=== PATIENT | male | born 1970 | race Caucasian/White ===

== ENCOUNTER 2017-10-13 19:12 | Emergency (ER) | payer BC, OTHER ==
[~2017-10-13] VITALS: Ht 185.4 cm; Wt 97.7 kg
[2017-10-13] MEDS ORDERED: D-AMPHETAMINE (19:27)
[2017-10-13] MEDS ORDERED: OMEP40CA2 (19:27)
[2017-10-13] MEDS ORDERED: IBUP-1022 PO (19:27)
[2017-10-13] MEDS ORDERED: ASPIRIN 81 MG CHEW TABLET PO ONE (21:15)
[2017-10-13 21:19] LABS: BASO # 0.1 10^3/uL (0.0-0.2); BASO % 0.6 % (0.0-1.0); EOS # 0.2 10^3/uL (0.0-0.50); EOS % 2.5 % (0.0-3.0); IMMATURE GRANULOCYTE % 0.2 % (0-0); LYMPH # 2.6 10^3/uL (1.5-4.5); LYMPH % 29.4 % (24.0-44.0); MEAN CORPUSCULAR HEMOGLOBIN 30.6 pg (27.0-33.0); MEAN CORPUSCULAR HGB CONC 33.3 g/dl (32.0-36.5); MEAN CORPUSCULAR VOLUME 91.9 fl (80.0-96.0); MONO % 11.5 % (0.0-5.0); NEUTROPHILS % 55.8 % (36.0-66.0); PLATELET COUNT, AUTOMATED 264 10^3/uL (150-450); RED CELL DISTRIBUTION WIDTH 12.5 % (11.5-14.5); WHITE BLOOD COUNT 8.9 10^3/uL (4.0-10.0)
[2017-10-13 21:34] LABS: ALBUMIN 3.3 GM/DL (3.2-5.2); ALBUMIN/GLOBULIN RATIO 0.97 (1.00-1.93); ALKALINE PHOSPHATASE 89 U/L (45-117); ALT/SGPT 27 U/L (12-78); ANION GAP 4 MEQ/L (8-16); AST/SGOT 14 U/L (7-37); BILIRUBIN,DIRECT < 0.1 MG/DL (0.0-0.2); BILIRUBIN,TOTAL 0.3 MG/DL (0.2-1.0); BLOOD UREA NITROGEN 14 MG/DL (7-18); CALCIUM LEVEL 8.5 MG/DL (8.5-10.1); CARBON DIOXIDE LEVEL 29 MEQ/L (21-32); CHLORIDE LEVEL 108 MEQ/L (98-107); CREATININE FOR GFR 0.89 MG/DL (0.70-1.30); GLOMERULAR FILTRATION RATE > 60.0 (>60); GLUCOSE, FASTING 70 MG/DL (70-105); POTASSIUM SERUM 3.9 MEQ/L (3.5-5.1); SODIUM LEVEL 141 MEQ/L (136-145); TOTAL PROTEIN 6.7 GM/DL (6.4-8.2)
[2017-10-13 22:16] LABS: FREE T4 1.03 NG/DL (0.76-1.46)
[2017-10-14] MEDS ORDERED: ISOVUE-370 76% 100ML VIAL (Q9967) As Ordered ONE (00:27)
--- NOTE | 2017-10-14 02:20 | REPUSA ---
CLINICAL HISTORY: Dyspnea, exclude PE. TECHNIQUE: Multiple incremental axial, coronal and oblique images are obtained from the thoracic inle t to the upper abdomen. Intravenous contrast material was administered as per pulmonary embolism prot ocol. COMMENTS: Bilateral basilar dependent atelectatic airspace disease in the lower lobes. There is excellent opacification of pulmonary arterial system without evidence for pulmonary embolism . Aorta is of normal caliber without evidence for dissection or aneurysm. There is no evidence of pleural or parenchymal mass. There are no pleural effusions. There is no evid ence of hilar or mediastinal lymphadenopathy. The heart and great vessels are within normal limits. Images of the upper abdomen demonstrate no evidence of adrenal mass. The bony structures are free of lytic or blastic lesions. IMPRESSION: No evidence for pulmonary embolism. Bilateral basilar atelectatic airspace disease in the dependent aspect of the lungs. Thank you for your kind referral of this patient.
[2017-10-14 02:29] VITALS: BP 116/64
--- NOTE | 2017-10-14 02:49 | REP ---
Clinical: Chest pain . Comparison: 11/15/2014 . Findings: The mediastinum and cardiac silhouette are stable and within normal limits for portable technique. The lung verduzco are clear without acute consolidation, effusion, or pneumothorax. Skeletal structures are intact. Impression: No acute cardiopulmonary process appreciated. Signed by Mike Ramos MD 10/14/2017 02:40 A
--- NOTE | 2017-10-14 09:21 | ECGEPIP ---
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
--- NOTE | 2017-10-14 09:39 | ECGEPIP ---
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
== END 2017-10-14 02:46 | disposition home or self-care (01) ==
LOC: M ED 19:12
DX: R07.89 Other chest pain (principal); K21.9 Gastro-esophageal reflux disease without esophagitis; Z79.899 Other long term (current) drug therapy
CPT/HCPCS: 36415; 71010; 71275; 80048; 80076; 82550; 82553; 83690; 84439; 84443; 85025; 93005; 93041; 94760; 99285; Q9967

== ENCOUNTER → 2018-01-09 | Outpatient (REF) | payer BC, OTHER ==
[2018-01-09 19:01] LABS: FERRITIN 155 NG/ML (26-388); IRON (FE) 84 UG/DL (65-175); PERCENT SATURATION 30.5 % (19.7-50.0); TOTAL IRON BINDING CAPACITY 275 UG/DL (250-450)
== END ==
LOC: M LAB REF 18:01
DX: Z01.818 Encounter for other preprocedural examination (principal); M25.559 Pain in unspecified hip; D63.8 Anemia in other chronic diseases classified elsewhere
CPT/HCPCS: 83550

== ENCOUNTER → 2020-08-15 | Outpatient (REF) | payer OTHER ==
[~2020-08-15] MED LIST: D-AMPHETAMINE; IBUP-1022 PO; OMEP40CA97
== END ==
LOC: M LAB REF 11:59
PROVIDERS: ATTEND Physician Assistant Medical
DX: R19.4 Change in bowel habit (principal)

== ENCOUNTER → 2020-09-03 | Outpatient (CLI) | payer BC, OTHER ==
[~2020-09-03] MED LIST changes: +GASTROGRAFIN SOLUTION 30ML (Q9963) As Ordered ONE; +ISOVUE-370 76% 100ML VIAL As Ordered ONE
--- NOTE | 2020-09-03 10:31 | REP ---
INDICATION: CHANGE IN BOWEL HABITS, UPPER ABD PAIN, FAMILY HX. COMPARISON: None TECHNIQUE: Axial contrast-enhanced images from the lung bases to the pubic symphysis using 100 cc Isovue 370 intravenous contrast material. Precontrast images of the abdomen obtained along with coronal and sagittal reformations. Post processing metallic artifact reduction images obtained through the pelvis. This CT examination was performed using the following dose reduction techniques: Automated exposure control, adjustment of mA and/or kv according to the patient's size, and the use of iterative reconstruction technique. FINDINGS: Liver, spleen, pancreas, gallbladder, bilateral adrenal glands and kidneys are essentially normal. Incidental 1 mm nonobstructing left renal calculus noted. The enteric system including stomach, small, and large bowel appears relatively normal. No evidence for obstruction or acute inflammatory process. Normal terminal ileum and appendix are identified in the right lower quadrant. Colonic and sigmoid diverticulosis noted without acute diverticulitis. Pelvis demonstrates normal bladder and age-appropriate prostate/seminal vesicles. No ascites. No free air. No intraperitoneal or retroperitoneal adenopathy. Abdominal aorta and vasculature appear normal. Musculoskeletal structures are intact and without acute osseous abnormality. Lung bases are clear. IMPRESSION: 1. Diverticulosis without acute diverticulitis. 2. 1 mm nonobstructing left renal calculus. 3. No further acute abdominopelvic pathology appreciated. No ascites, focal inflammatory stranding, or adenopathy noted. <Electronically signed by Mike Ramos > 09/03/20 [id number]
== END ==
LOC: M RAD 08:26
PROVIDERS: ATTEND Physician Assistant Medical
DX: N20.0 Calculus of kidney (principal); R19.4 Change in bowel habit; R10.10 Upper abdominal pain, unspecified; Z80.0 Family history of malignant neoplasm of digestive organs
CPT/HCPCS: 74178; Q9963; Q9967

== ENCOUNTER → 2020-09-28 | Outpatient (CLI) | payer OTHER ==
[~2020-09-28] MED LIST changes: +CETI5SOL3 PO; -GASTROGRAFIN SOLUTION 30ML (Q9963) As Ordered ONE; -ISOVUE-370 76% 100ML VIAL As Ordered ONE; +LAMO25TA4 PO; +OMEP-221 PO
== END ==
LOC: M LABSMTC 08:14
PROVIDERS: ATTEND Anesthesiology
DX: Z01.812 Encounter for preprocedural laboratory examination (principal); Z20.828 Contact with and (suspected) exposure to other viral communicable diseases

== ENCOUNTER 2020-10-03 08:55 | Day surgery (SDC) | payer BC, OTHER ==
[~2020-10-03] VITALS: Ht 185.4 cm; Wt 105.2 kg
[~2020-10-03 08:55] MED LIST changes: +NS 1,000 ML IV ONE
[2020-10-03] MEDS ORDERED: CIPROFLOXACIN 400 MG in IV 1 EA IV ONE (11:00)
[2020-10-03] MEDS ORDERED: propofoL 500 MG/50 ML VIAL As Ordered ONE (11:20)
[2020-10-03] MEDS ORDERED: LIDOCAINE 2% 100MG/5ML SDV (FOR ANES.) As Ordered ONE (11:20)
[2020-10-03] MEDS ORDERED: fentaNYL 100 MCG/2 ML INJECTION (J3010) As Ordered ONE (11:20)
[2020-10-03] MEDS ORDERED: GLYCOPYRROLATE INJ 0.2 MG/ML 2 ML VIAL As Ordered ONE (11:46)
--- NOTE | 2020-10-03 12:06 | ROOR ---
Patient Name: Dequan Catherine Procedure Date: 10/03/2020 11:03 AM Date of : 1970 Age: 49 Room: [facility] Gender: Male Note Status: Finalized Procedure: Upper GI endoscopy Indications: Epigastric abdominal pain, Heartburn Providers: Rafa Fernandez MD Referring MD: PARTHA WAY JR, MD Requesting Provider: Medicines: Monitored Anesthesia Care Complications: No immediate complications. Procedure: Pre-Anesthesia Assessment: - Prior to the procedure, a History and Physical was performed, and patient medications and allergies were reviewed. The patient is competent. The risks and benefits of the procedure and the sedation options and risks were discussed with the patient. All questions were answered and informed consent was obtained. Patient identification and proposed procedure were verified by the physician, the nurse and the anesthesiologist in the procedure room. Mental Status Examination: alert and oriented. Airway Examination: normal oropharyngeal airway and neck mobility. Respiratory Examination: clear to auscultation. CV Examination: normal. Prophylactic Antibiotics: The patient does not require prophylactic antibiotics. Prior Anticoagulants: The patient has taken no previous anticoagulant or antiplatelet agents. ASA Grade Assessment: III - A patient with severe systemic disease. After reviewing the risks and benefits, the patient was deemed in satisfactory condition to undergo the procedure. The anesthesia plan was to use monitored anesthesia care (MAC). Immediately prior to administration of medications, the patient was re-assessed for adequacy to receive sedatives. The heart rate, respiratory rate, oxygen saturations, blood pressure, adequacy of pulmonary ventilation, and response to care were monitored throughout the procedure. The physical status of the patient was re-assessed after the procedure. The Endoscope was introduced through the mouth, and advanced to the second part of duodenum. The upper GI endoscopy was accomplished without difficulty. The patient tolerated the procedure poorly due to the patient's excessive discomfort during the procedure and the patient's inability to tolerate anesthesia. Findings: No gross lesions were noted in the entire esophagus. Scattered mild inflammation characterized by erythema and granularity was found in the gastric antrum. No gross lesions were noted in the duodenal bulb and in the second portion of the duodenum. Exam was limited by poor tolerance by patient. Impression: - No gross lesions in esophagus. - Gastritis. - No gross lesions in the duodenal bulb and in the second portion of the duodenum. - No specimens collected. Recommendation: - Patient has a contact number available for emergencies. The signs and symptoms of potential delayed complications were discussed with the patient. Return to normal activities tomorrow. Written discharge instructions were provided to the patient. - High fiber diet. - Continue present medications. - Follow an antireflux regimen. - Repeat upper endoscopy (if needed, as current exam is limited due to poor tolerance) and depending on clinical course/ symptoms for detailed evaluation and biopsies. - Follow the recommendations as per the other procedure note. - Return to primary care physician. Procedure Code(s): --- Professional --- 78782, Esophagogastroduodenoscopy, flexible, transoral; diagnostic, including collection of specimen(s) by brushing or washing, when performed (separate procedure) Diagnosis Code(s): --- Professional --- K29.70, Gastritis, unspecified, without bleeding R10.13, Epigastric pain R12, Heartburn CPT copyright 2019 [employer]. All rights reserved. The codes documented in this report are preliminary and upon economic manager review may be revised to meet current compliance requirements. Rafa Fernandez MD Rafa Fernandez MD 10/03/2020 12:05:41 PM Electronically signed by Rafa Fernandez MD Number of Addenda: 0 Note Initiated On: 10/03/2020 11:03 AM Estimated Blood Loss: Estimated blood loss was minimal.
--- NOTE | 2020-10-03 12:12 | ROOR ---
Patient Name: Dequan Catherine Procedure Date: 10/03/2020 11:04 AM Date of : 1970 Age: 49 Room: [facility] Gender: Male Note Status: Finalized Procedure: Colonoscopy Indications: Screening for colorectal malignant neoplasm Providers: Rafa Fernandez MD Referring MD: PARTHA WAY JR, MD Requesting Provider: Medicines: Monitored Anesthesia Care Complications: No immediate complications. Procedure: Pre-Anesthesia Assessment: - Prior to the procedure, a History and Physical was performed, and patient medications and allergies were reviewed. The patient is competent. The risks and benefits of the procedure and the sedation options and risks were discussed with the patient. All questions were answered and informed consent was obtained. Patient identification and proposed procedure were verified by the physician, the nurse and the anesthesiologist in the procedure room. Mental Status Examination: normal. Airway Examination: normal oropharyngeal airway and neck mobility. Prophylactic Antibiotics: The patient does not require prophylactic antibiotics. Prior Anticoagulants: The patient has taken no previous anticoagulant or antiplatelet agents. ASA Grade Assessment: II - A patient with mild systemic disease. After reviewing the risks and benefits, the patient was deemed in satisfactory condition to undergo the procedure. The anesthesia plan was to use monitored anesthesia care (MAC). Immediately prior to administration of medications, the patient was re-assessed for adequacy to receive sedatives. The heart rate, respiratory rate, oxygen saturations, blood pressure, adequacy of pulmonary ventilation, and response to care were monitored throughout the procedure. The physical status of the patient was re-assessed after the procedure. The Colonoscope was introduced through the anus and advanced to the terminal ileum, with identification of the appendiceal orifice and IC valve. The colonoscopy was performed without difficulty. The patient tolerated the procedure well. The quality of the bowel preparation was good. The terminal ileum, ileocecal valve, appendiceal orifice, and rectum were photographed. Scope insertion time was 2 minutes. Scope withdrawal time was 10 minutes. The total duration of the procedure was 14 minutes. Findings: The perianal and digital rectal examinations were normal. The terminal ileum appeared normal. Four sessile polyps were found in the transverse colon, ascending colon and cecum. The polyps were 8 to 12 mm in size. These polyps were removed with a cold snare. Resection and retrieval were complete. Verification of patient identification for the specimen was done by the physician and nurse using the patient's name, date and medical record number. Estimated blood loss was minimal. Non-bleeding external and internal hemorrhoids were found during retroflexion. The hemorrhoids were small. Impression: - The examined portion of the ileum was normal. - Four 8 to 12 mm polyps in the transverse colon, in the ascending colon and in the cecum, removed with a cold snare. Resected and retrieved. - Non-bleeding external and internal hemorrhoids. Recommendation: - Patient has a contact number available for emergencies. The signs and symptoms of potential delayed complications were discussed with the patient. Return to normal activities tomorrow. Written discharge instructions were provided to the patient. - High fiber diet. - Continue present medications. - Await pathology results. - Repeat colonoscopy in 3 - 5 years for surveillance based on pathology results. - Telephone GI clinic for pathology results in 2 weeks. - Return to primary care physician. Procedure Code(s): --- Professional --- 87115, Colonoscopy, flexible; with removal of tumor(s), polyp(s), or other lesion(s) by snare technique Diagnosis Code(s): --- Professional --- Z12.11, Encounter for screening for malignant neoplasm of colon K64.8, Other hemorrhoids K63.5, Polyp of colon CPT copyright 2019 [place] [employer]. All rights reserved. The codes documented in this report are preliminary and upon [employer] review may be revised to meet current compliance requirements. Rafa Fernandez MD Rafa Fernandez MD 10/03/2020 12:11:17 PM Electronically signed by Rafa Fernandez MD Number of Addenda: 0 Note Initiated On: 10/03/2020 11:04 AM Estimated Blood Loss: Estimated blood loss was minimal.
[2020-10-03 12:30] VITALS: BP 137/95
== END 2020-10-03 12:39 | disposition home or self-care (01) ==
LOC: M OPP 08:55
PROVIDERS: ATTEND Internal Medicine Gastroenterology
DX: R19.4 Change in bowel habit (principal); R10.13 Epigastric pain; Z80.0 Family history of malignant neoplasm of digestive organs; D12.6 Benign neoplasm of colon, unspecified; K64.8 Other hemorrhoids; K29.70 Gastritis, unspecified, without bleeding; F41.9 Anxiety disorder, unspecified; G47.30 Sleep apnea, unspecified; F17.220 Nicotine dependence, chewing tobacco, uncomplicated; Z91.013 Allergy to seafood; Z79.899 Other long term (current) drug therapy; Z96.641 Presence of right artificial hip joint
CPT/HCPCS: 43235; 45385; 88305; J0744; J3010

== ENCOUNTER → 2020-10-06 | Outpatient (CLI) | payer BC, OTHER ==
[~2020-10-06] MED LIST changes: -NS 1,000 ML IV ONE
--- NOTE | 2020-10-06 11:42 | REP ---
INDICATION: COUGH COMPARISON: 11/15/2014 TECHNIQUE: PA and lateral. FINDINGS: The mediastinum and cardiac silhouette are normal. The lung verduzco are clear and without acute consolidation, effusion, or pneumothorax. The skeletal structures are intact and normal. IMPRESSION: No acute cardiopulmonary process. <Electronically signed by Mike Ramos > 10/06/20 [id number]
== END ==
LOC: M RAD 10:51
PROVIDERS: ATTEND Nurse Practitioner Acute Care
DX: R05 Cough (principal)

== ENCOUNTER → 2020-10-31 | Outpatient (REF) | payer OTHER, BC | LOC: M LAB REF 10:01 | PROVIDERS: ATTEND Physician Assistant Medical | DX: R19.4 Change in bowel habit (principal) ==

== ENCOUNTER 2021-03-24 17:35 | Emergency (ER) | payer BC, OTHER ==
[~2021-03-24] VITALS: Ht 185.4 cm; Wt 97.7 kg
[2021-03-24 17:35] VITALS: BP 105/57
--- NOTE | 2021-03-24 18:49 | REP ---
INDICATION: finger lac. COMPARISON: None. TECHNIQUE: Four views of the 2nd digit FINDINGS: No acute fracture or destructive osseous lesion. IMPRESSION: No osseous abnormality <Electronically signed by James Moctezuma > 03/24/21 [id number]
[2021-03-24] MEDS ORDERED: LIDOCAINE 2% MDV 20ML VIAL INFIL ONE (21:10)
[2021-03-24] MEDS ORDERED: BOOSTRIX/ADACEL VACCINE (DIPHTH/PERTUSS/ACELL/TETANUS) 0.5ML SYR IM ONE (21:10)
[2021-03-24] MEDS ORDERED: NEOSPORIN OINT 0.9 GM PKT TOP ONE (22:30)
== END 2021-03-24 22:51 | disposition home or self-care (01) ==
LOC: M ED 17:35
DX: S61.210A Laceration without foreign body of right index finger without damage to nail, initial encounter (principal); S60.412A Abrasion of right middle finger, initial encounter; W26.8XXA Contact with other sharp object(s), not elsewhere classified, initial encounter; Y92.009 Unspecified place in unspecified non-institutional (private) residence as the place of occurrence of the external cause; Y93.9 Activity, unspecified; Y99.9 Unspecified external cause status; F41.9 Anxiety disorder, unspecified; F17.200 Nicotine dependence, unspecified, uncomplicated; Z79.899 Other long term (current) drug therapy; Z91.013 Allergy to seafood

== ENCOUNTER → 2021-06-09 | Outpatient (REF) | payer BC, OTHER ==
[~2021-06-09] MED LIST changes: +OMEP40CA4; -OMEP40CA97
[2021-06-09 19:12] LABS: GC DNA AMPLIFICATION NEGATIVE (NEGATIVE)
[2021-06-09 21:26] LABS: APPEARANCE, URINE CLEAR (CLEAR); BACTERIA, URINE AUTO NEGATIVE (NEGATIVE); BILIRUBIN, URINE AUTO NEGATIVE (NEGATIVE); BLOOD, URINE BLOOD NEGATIVE (NEGATIVE); COLOR, URINE STRAW (YELLOW); GLUCOSE, URINE (UA) AUTO NEGATIVE (NEGATIVE); KETONE, URINE AUTO NEGATIVE (NEGATIVE); LEUKOCYTE ESTERASE, URINE AUTO NEGATIVE (NEGATIVE); MUCUS, URINE SMALL (NEGATIVE); NITRITE, URINE AUTO NEGATIVE (NEGATIVE); PROTEIN, URINE AUTO NEGATIVE (NEGATIVE); RBC, URINE AUTO 0 /HPF (0-3); SPECIFIC GRAVITY URINE AUTO 1.005 (1.002-1.035); SQUAMOUS EPITHELIAL CELL UR AU 0 /HPF (0-6); UROBILINOGEN, URINE AUTO 0.2 mg/dL (0.0-2.0); WBC, URINE AUTO 0 /HPF (0-3)
== END ==
LOC: M SMT 16:49
PROVIDERS: ATTEND Nurse Practitioner Family
DX: R30.0 Dysuria (principal)

== ENCOUNTER → 2021-12-25 | Outpatient (CLI) | payer BC, OTHER ==
[~2021-12-25] MED LIST changes: -OMEP-221 PO; +OMEP40CA5 PO
== END ==
LOC: M WUC 14:30
PROVIDERS: ATTEND Internal Medicine
DX: R07.9 Chest pain, unspecified (principal)

== ENCOUNTER → 2022-01-15 | Outpatient (CLI) | payer BC, OTHER | LOC: M RAD 13:09 | PROVIDERS: ATTEND Internal Medicine | DX: Z12.2 Encounter for screening for malignant neoplasm of respiratory organs (principal); Z87.891 Personal history of nicotine dependence; R91.8 Other nonspecific abnormal finding of lung field ==

== ENCOUNTER 2022-05-13 02:46 | Emergency (ER) | payer BC, OTHER ==
[~2022-05-13] VITALS: Ht 185.4 cm; Wt 102.3 kg
[2022-05-13] MEDS ORDERED: ATROPINE SULF 1MG/10ML SYRINGE (J0461) ONE (02:47)
[2022-05-13] MEDS ORDERED: IBUP200C89 PO (02:59)
[2022-05-13] MEDS ORDERED: PRED10PA PO (02:59)
[2022-05-13] MEDS ORDERED: ACET-683 PO (02:59)
[2022-05-13] MEDS ORDERED: NITROGLYCERIN 0.4 MG SUBL TABLET SL PRN (03:35)
[2022-05-13] MEDS ORDERED: ASPIRIN 81 MG CHEW TABLET PO ONE (03:35)
[2022-05-13 03:40] VITALS: BP 132/74
[2022-05-13 03:41] LABS: BASO # 0.1 10^3/uL (0.0-0.2); BASO % 0.6 % (0.0-1.0); EOS # 0.2 10^3/uL (0.0-0.5); EOS % 1.3 % (0.0-3.0); HEMATOCRIT 45.8 % (42.0-52.0); HEMOGLOBIN 15.3 g/dl (13.5-17.5); LYMPH # 2.1 10^3/uL (1.5-5.0); LYMPH % 15.7 % (24.0-44.0); MEAN CORPUSCULAR HEMOGLOBIN 31.2 pg (27.0-33.0); MEAN CORPUSCULAR HGB CONC 33.4 g/dl (32.0-36.5); MEAN CORPUSCULAR VOLUME 93.3 fl (80.0-96.0); MONO # 1.1 10^3/uL (0.0-0.8); NEUTROPHILS # 9.9 10^3/uL (1.5-8.5); PLATELET COUNT, AUTOMATED 277 10^3/uL (150-450); RED BLOOD COUNT 4.91 10^6/uL (4.30-6.10); WHITE BLOOD COUNT 13.4 10^3/uL (4.0-10.0)
[2022-05-13 04:00] LABS: BLOOD UREA NITROGEN 22 MG/DL (7-18); CALCIUM LEVEL 8.9 MG/DL (8.5-10.1); CARBON DIOXIDE LEVEL 27 MEQ/L (21-32); CHLORIDE LEVEL 107 MEQ/L (98-107); CREATININE FOR GFR 1.09 MG/DL (0.70-1.30); GLOMERULAR FILTRATION RATE > 60.0 (>56); GLUCOSE, FASTING 110 MG/DL (70-100); MAGNESIUM LEVEL 2.2 MG/DL (1.8-2.4); POTASSIUM SERUM 3.8 MEQ/L (3.5-5.1); SODIUM LEVEL 142 MEQ/L (136-145)
[2022-05-13 04:06] LABS: CK-MB VALUE MASS 1.8 NG/ML (<3.6); MB/CK RELATIVE INDEX 0.87 (< OR =4)
[2022-05-13 04:27] LABS: RSV AMPLIFICATION NEGATIVE (NEGATIVE)
[2022-05-13 05:03] LABS: CK-MB VALUE MASS 2.7 NG/ML (<3.6); MB/CK RELATIVE INDEX 2.43 (< OR =4)
[2022-05-13] MEDS ORDERED: HEPARIN DRIP 25,000 UNITS in IV 1 EA IV SCH (05:30)
[2022-05-13] MEDS ORDERED: CLOPIDOGREL 300 MG TAB (PLAVIX) PO ONE (05:30)
[2022-05-13] MEDS ORDERED: TENECTEPLASE 50 MG KIT (TNKase) (J3101 PER 1MG) IV ONE (06:00)
[2022-05-13 06:18] LABS: CK-MB VALUE MASS 5.2 NG/ML (<3.6); MB/CK RELATIVE INDEX 4.64 (< OR =4)
[2022-05-13] MEDS ORDERED: DOPamine 400 MG/500 ML BAG IN D5W (800MCG/ML) (J1265) As Ordered ONE (06:52)
[2022-05-13 07:15] VITALS: BP 122/63
== END 2022-05-13 07:16 | disposition short-term general hospital (02) ==
LOC: M ED 02:46 → EDBD 02:46 → M ED 07:16
DX: I21.19 ST elevation (STEMI) myocardial infarction involving other coronary artery of inferior wall (principal); K21.9 Gastro-esophageal reflux disease without esophagitis; F32.A Depression, unspecified; Z79.52 Long term (current) use of systemic steroids; Z91.013 Allergy to seafood; Z79.899 Other long term (current) drug therapy; Z98.890 Other specified postprocedural states
CPT/HCPCS: 71045; 80048; 82550; 82553; 83735; 84484; 85025; 85379; 87631; 93005; 96374; 96375; 99285; J0461; J1644; J3101

== ENCOUNTER → 2022-06-01 | Outpatient (CLI) | payer BC, OTHER ==
[~2022-06-01] MED LIST changes: +ACET-683 PO; +IBUP200C89 PO; +PRED10PA PO
== END ==
LOC: M SOG 13:03
PROVIDERS: ATTEND Orthopaedic Surgery Hand Surgery
DX: M79.644 Pain in right finger(s) (principal)

== ENCOUNTER 2022-06-15 09:40 | Emergency (ER) | payer BC, OTHER ==
[~2022-06-15] VITALS: Ht 185.4 cm; Wt 102.0 kg
[2022-06-15] MEDS ORDERED: ECOT81TA5 PO (09:53)
[2022-06-15] MEDS ORDERED: BUPR-71 (09:53)
[2022-06-15] MEDS ORDERED: METO1TAB32 (09:53)
[2022-06-15] MEDS ORDERED: ATOR80TA59 (09:53)
[2022-06-15] MEDS ORDERED: OMEP-173 (09:53)
[2022-06-15] MEDS ORDERED: NITR0.4S14 (09:53)
[2022-06-15] MEDS ORDERED: BRIL90TA (09:53)
[2022-06-15 10:10] LABS: BASO # 0.1 10^3/uL (0.0-0.2); BASO % 0.8 % (0.0-1.0); EOS # 0.2 10^3/uL (0.0-0.5); EOS % 2.3 % (0.0-3.0); HEMATOCRIT 48.4 % (42.0-52.0); HEMOGLOBIN 15.9 g/dl (13.5-17.5); LYMPH # 2.1 10^3/uL (1.5-5.0); LYMPH % 23.9 % (24.0-44.0); MEAN CORPUSCULAR HEMOGLOBIN 30.6 pg (27.0-33.0); MEAN CORPUSCULAR HGB CONC 32.9 g/dl (32.0-36.5); MEAN CORPUSCULAR VOLUME 93.1 fl (80.0-96.0); MONO % 11.1 % (2.0-8.0); NEUTROPHILS # 5.3 10^3/uL (1.5-8.5); NEUTROPHILS % 61.7 % (36.0-66.0); PLATELET COUNT, AUTOMATED 228 10^3/uL (150-450); WHITE BLOOD COUNT 8.6 10^3/uL (4.0-10.0)
[2022-06-15 10:38] LABS: ALBUMIN 3.9 GM/DL (3.2-5.2); ALT/SGPT 41 U/L (12-78); BILIRUBIN,DIRECT 0.2 MG/DL (0.0-0.2); BILIRUBIN,TOTAL 0.5 MG/DL (0.2-1.0); BLOOD UREA NITROGEN 16 MG/DL (7-18); CALCIUM LEVEL 9.5 MG/DL (8.5-10.1); CARBON DIOXIDE LEVEL 29 MEQ/L (21-32); CHLORIDE LEVEL 105 MEQ/L (98-107); CREATININE FOR GFR 1.02 MG/DL (0.70-1.30); GLOMERULAR FILTRATION RATE > 60.0 (>56); GLUCOSE, FASTING 112 MG/DL (70-100); SODIUM LEVEL 138 MEQ/L (136-145); TOTAL PROTEIN 7.5 GM/DL (6.4-8.2)
[2022-06-15 10:59] LABS: CK-MB VALUE MASS 2.6 NG/ML (<3.6); MB/CK RELATIVE INDEX 1.79 (< OR =4)
[2022-06-15 11:08] LABS: NT-PRO BNP 363 PG/ML (<125)
[2022-06-15] MEDS ORDERED: ISOVUE-370 76% 100ML VIAL As Ordered ONE (12:32)
[2022-06-15 14:45] VITALS: BP 144/75
== END 2022-06-15 14:53 | disposition home or self-care (01) ==
LOC: M ED 10:39
DX: R07.9 Chest pain, unspecified (principal); I25.10 Atherosclerotic heart disease of native coronary artery without angina pectoris; Z95.5 Presence of coronary angioplasty implant and graft; Z87.891 Personal history of nicotine dependence; Z79.899 Other long term (current) drug therapy; Z91.013 Allergy to seafood
CPT/HCPCS: 71045; 71275; 80048; 80076; 82550; 82553; 83880; 84484; 85025; 93005; 93041; 94760; 99285; Q9967

== ENCOUNTER → 2022-06-22 | Outpatient (CLI) | payer BC, OTHER ==
[~2022-06-22] MED LIST changes: +ATOR80TA59; +BRIL90TA; +BUPR-71; +ECOT81TA5 PO; +METO1TAB32; +NITR0.4S14; +OMEP-173
== END ==
LOC: M RAD 10:17
PROVIDERS: ATTEND Internal Medicine
DX: R91.8 Other nonspecific abnormal finding of lung field (principal)

== ENCOUNTER → 2022-08-03 | Outpatient (REF) | payer OTHER, BC ==
[2022-08-05 11:08] LABS: ANTINUCLEAR ANTIBODIES DIRECT Negative (Negative)
== END ==
LOC: M LAB REF 12:11
PROVIDERS: ATTEND Physician Assistant Medical
DX: R23.2 Flushing (principal); M79.10 Myalgia, unspecified site

== ENCOUNTER 2023-06-17 14:34 | Emergency (ER) | payer BC, OTHER ==
[~2023-06-17] VITALS: Ht 185.4 cm; Wt 93.9 kg
[2023-06-17 15:15] LABS: BASO # 0.1 10^3/uL (0.0-0.2); BASO % 0.8 % (0.0-1.0); EOS # 0.2 10^3/uL (0.0-0.5); EOS % 2.3 % (0.0-3.0); HEMATOCRIT 45.6 % (42.0-52.0); HEMOGLOBIN 15.3 g/dl (13.5-17.5); LYMPH # 2.5 10^3/uL (1.5-5.0); LYMPH % 31.8 % (24.0-44.0); MEAN CORPUSCULAR HEMOGLOBIN 30.9 pg (27.0-33.0); MEAN CORPUSCULAR HGB CONC 33.6 g/dl (32.0-36.5); MEAN CORPUSCULAR VOLUME 92.1 fl (80.0-96.0); MONO # 0.7 10^3/uL (0.0-0.8); MONO % 8.1 % (2.0-8.0); NEUTROPHILS # 4.6 10^3/uL (1.5-8.5); NEUTROPHILS % 56.9 % (36.0-66.0); PLATELET COUNT, AUTOMATED 211 10^3/uL (150-450); RED BLOOD COUNT 4.95 10^6/uL (4.30-6.10)
[2023-06-17 15:44] LABS: CK-MB VALUE MASS < 1.0 NG/ML (<3.6)
[2023-06-17 15:46] LABS: BLOOD UREA NITROGEN 15 MG/DL (9-23); CALCIUM LEVEL 9.1 MG/DL (8.5-10.1); CARBON DIOXIDE LEVEL 28 MMOL/L (20-31); CHLORIDE LEVEL 104 MMOL/L (98-107); CPK CREATINE PHOSPHOKINASE 94 U/L (46-171); CREATININE FOR GFR 0.96 MG/DL (0.70-1.30); GLOMERULAR FILTRATION RATE > 60.0 (>56); GLUCOSE, FASTING 110 MG/DL (60-100); MB/CK RELATIVE INDEX 1.06 (< OR =4); SODIUM LEVEL 141 MMOL/L (136-145)
[2023-06-17] MEDS ORDERED: ASPIRIN 81MG CHEW TABLET PO ONE (16:25)
[2023-06-17] MEDS ORDERED: ISOVUE-370 76% 100ML VIAL As Ordered ONE (16:30)
[2023-06-17 16:49] LABS: CK-MB VALUE MASS < 1.0 NG/ML (<3.6)
[2023-06-17 16:51] LABS: CPK CREATINE PHOSPHOKINASE 90 U/L (46-171); MB/CK RELATIVE INDEX 1.11 (< OR =4)
[2023-06-17 17:49] VITALS: TEMP 97.9; O2SAT 98
[2023-06-17 18:00] VITALS: BP 120/77
== END 2023-06-17 18:19 | disposition home or self-care (01) ==
LOC: M ED 15:56
DX: R91.8 Other nonspecific abnormal finding of lung field (principal); K44.9 Diaphragmatic hernia without obstruction or gangrene; R07.9 Chest pain, unspecified; I25.10 Atherosclerotic heart disease of native coronary artery without angina pectoris; E78.5 Hyperlipidemia, unspecified; K21.9 Gastro-esophageal reflux disease without esophagitis; F41.9 Anxiety disorder, unspecified; Z87.891 Personal history of nicotine dependence; Z95.5 Presence of coronary angioplasty implant and graft; Z79.82 Long term (current) use of aspirin; Z79.899 Other long term (current) drug therapy; Z88.8 Allergy status to other drugs, medicaments and biological substances; Z91.013 Allergy to seafood
CPT/HCPCS: 71045; 71275; 80048; 82550; 82553; 84484; 85025; 93005; 93041; 94760; 99285; Q9967

== ENCOUNTER → 2023-07-20 | Outpatient (REF) | payer BC, OTHER | LOC: M LAB REF 12:43 | PROVIDERS: ATTEND Internal Medicine | DX: R53.83 Other fatigue (principal) ==

== ENCOUNTER → 2023-12-15 | Outpatient (CLI) | payer BC, OTHER ==
[2023-12-15 15:35] LABS: HEMATOCRIT 48.8 % (42.0-52.0); HEMOGLOBIN 15.8 g/dl (13.5-17.5); MEAN CORPUSCULAR HEMOGLOBIN 30.1 pg (27.0-33.0); MEAN CORPUSCULAR HGB CONC 32.4 g/dl (32.0-36.5); PLATELET COUNT, AUTOMATED 238 10^3/uL (150-450); RED BLOOD COUNT 5.25 10^6/uL (4.30-6.10); WHITE BLOOD COUNT 9.5 10^3/uL (4.0-10.0)
[2023-12-15 16:02] LABS: BLOOD UREA NITROGEN 14 MG/DL (9-23); CALCIUM LEVEL 9.2 MG/DL (8.5-10.1); CARBON DIOXIDE LEVEL 30 MMOL/L (20-31); CHLORIDE LEVEL 104 MMOL/L (98-107); CREATININE FOR GFR 0.89 MG/DL (0.70-1.30); GLOMERULAR FILTRATION RATE > 60.0 (>56); GLUCOSE, FASTING 88 MG/DL (60-100); POTASSIUM SERUM 3.9 MMOL/L (3.5-5.1); SODIUM LEVEL 139 MMOL/L (136-145)
== END ==
LOC: M LAB 14:24
PROVIDERS: ATTEND Physician Assistant
DX: I25.10 Atherosclerotic heart disease of native coronary artery without angina pectoris (principal); R06.09 Other forms of dyspnea

== ENCOUNTER → 2023-12-15 | Outpatient (CLI) | payer BC, OTHER | LOC: M WUC 11:24 | PROVIDERS: ATTEND Nurse Practitioner Family | DX: R06.02 Shortness of breath (principal); R05.9 Cough, unspecified ==

== ENCOUNTER → 2024-01-03 | Outpatient (CLI) | payer BC, OTHER | LOC: M WUC 15:37 | PROVIDERS: ATTEND Internal Medicine | DX: M54.2 Cervicalgia (principal); M47.812 Spondylosis without myelopathy or radiculopathy, cervical region ==

== ENCOUNTER 2024-02-24 07:32 | Day surgery (SDC) | payer BC ==
[~2024-02-24] VITALS: Ht 185.4 cm; Wt 95.2 kg
[2024-02-24] MEDS: NS 1,000 ML IV ONE (06:00)
[~2024-02-24 07:32] MED LIST changes: -ATOR80TA59; +ATOR80TA59 PO; -METO1TAB32; +METO1TAB32 PO; -OMEP-173; +OMEP-173 PO; +RANO500T2 PO; +SILD100T PO
[2024-02-24] MEDS ORDERED: propofoL 200 MG/20 ML VIAL As Ordered ONE (09:23)
[2024-02-24 09:38] VITALS: TEMP 98.4
[2024-02-24 10:00] VITALS: BP 120/81; O2SAT 98
== END 2024-02-24 10:08 | disposition home or self-care (01) ==
LOC: M OPP 07:32
PROVIDERS: ATTEND Internal Medicine Gastroenterology
DX: Z12.11 Encounter for screening for malignant neoplasm of colon (principal); Z86.010 Personal history of colon polyps; K51.40 Inflammatory polyps of colon without complications; K64.8 Other hemorrhoids; K64.4 Residual hemorrhoidal skin tags; K57.30 Diverticulosis of large intestine without perforation or abscess without bleeding; Z91.013 Allergy to seafood; Z91.018 Allergy to other foods

== ENCOUNTER → 2024-06-29 | Outpatient (CLI) | payer BC ==
[2024-06-29 14:48] LABS: BASO # 0.1 10^3/uL (0.0-0.2); BASO % 0.6 % (0.0-1.0); EOS # 0.2 10^3/uL (0.0-0.5); EOS % 2.1 % (0.0-3.0); HEMATOCRIT 47.1 % (42.0-52.0); HEMOGLOBIN 15.6 g/dl (13.5-17.5); LYMPH # 2.4 10^3/uL (1.5-5.0); LYMPH % 28.2 % (24.0-44.0); MEAN CORPUSCULAR HEMOGLOBIN 31.5 pg (27.0-33.0); MEAN CORPUSCULAR HGB CONC 33.1 g/dl (32.0-36.5); MEAN CORPUSCULAR VOLUME 95.2 fl (80.0-96.0); MONO # 0.8 10^3/uL (0.0-0.8); MONO % 9.9 % (2.0-8.0); PLATELET COUNT, AUTOMATED 208 10^3/uL (150-450); RED BLOOD COUNT 4.95 10^6/uL (4.30-6.10); WHITE BLOOD COUNT 8.4 10^3/uL (4.0-10.0)
[2024-06-29 15:12] LABS: ALBUMIN 3.9 G/DL (3.2-5.2); ALKALINE PHOSPHATASE 92 U/L (46-116); ALT/SGPT 73 U/L (7.0-40); AST/SGOT 36 U/L (<34); BILIRUBIN,TOTAL 0.8 MG/DL (0.3-1.2); BLOOD UREA NITROGEN 21 MG/DL (9-23); CALCIUM LEVEL 9.4 MG/DL (8.5-10.1); CARBON DIOXIDE LEVEL 32 MMOL/L (20-31); CHLORIDE LEVEL 103 MMOL/L (98-107); CREATININE FOR GFR 0.96 MG/DL (0.70-1.30); GLOMERULAR FILTRATION RATE > 60.0 (>56); GLUCOSE, FASTING 96 MG/DL (60-100); IRON (FE) 115 UG/DL (65-175); PERCENT SATURATION 36.5 % (19.7-50.0); POTASSIUM SERUM 4.6 MMOL/L (3.5-5.1); SODIUM LEVEL 137 MMOL/L (136-145); TOTAL IRON BINDING CAPACITY 315 UG/DL (250-425); TOTAL PROTEIN 7.2 G/DL (5.7-8.2)
[2024-06-29 15:15] LABS: FERRITIN 102.4 NG/ML (10.5-307.3)
== END ==
LOC: M PLALAB 10:14
PROVIDERS: ATTEND Orthopaedic Surgery
DX: M25.552 Pain in left hip (principal); M16.12 Unilateral primary osteoarthritis, left hip

== ENCOUNTER → 2024-09-14 | Outpatient (CLI) | payer BC | LOC: M RAD 16:11 | PROVIDERS: ATTEND Internal Medicine | DX: Z12.2 Encounter for screening for malignant neoplasm of respiratory organs (principal); F17.211 Nicotine dependence, cigarettes, in remission; J47.9 Bronchiectasis, uncomplicated; I70.0 Atherosclerosis of aorta; I25.10 Atherosclerotic heart disease of native coronary artery without angina pectoris; R91.8 Other nonspecific abnormal finding of lung field ==

== ENCOUNTER → 2024-10-18 | Outpatient (CLI) | payer BC | LOC: M SLEEP 20:00 | PROVIDERS: ATTEND Internal Medicine Pulmonary Disease | DX: G47.33 Obstructive sleep apnea (adult) (pediatric) (principal); R40.0 Somnolence ==

== ENCOUNTER → 2025-02-05 | Outpatient (REF) | payer BC, OTHER ==
[2025-02-05 13:52] LABS: PERCENT SATURATION 16.2 % (19.7-50.0)
[2025-02-05 14:01] LABS: FOLATE 23.5 NG/ML (>5.4)
== END ==
LOC: M LAB REF 12:21
PROVIDERS: ATTEND Internal Medicine
DX: Q84.6 Other congenital malformations of nails (principal)

== ENCOUNTER → 2025-04-03 | Outpatient (REF) | payer OTHER, BC ==
[~2025-04-03] MED LIST changes: +LAMO-18 PO; -LAMO25TA4 PO
[2025-04-03 12:44] LABS: PERCENT SATURATION 17.2 % (19.7-50.0)
== END ==
LOC: M LAB REF 11:56
PROVIDERS: ATTEND Internal Medicine
DX: Q84.6 Other congenital malformations of nails (principal)

== ENCOUNTER → 2025-06-07 | Outpatient (REF) | payer OTHER, BC | LOC: M SFHCDERM 12:31 | PROVIDERS: ATTEND Physician Assistant | DX: L08.9 Local infection of the skin and subcutaneous tissue, unspecified (principal) ==

== ENCOUNTER → 2025-07-24 | Outpatient (REF) | payer OTHER, BC ==
[~2025-07-24] MED LIST changes: -IBUP-1022 PO; +IBUP600T42 PO
[2025-07-24 15:15] LABS: IRON (FE) 79.0 UG/DL (65-175); PERCENT SATURATION 26.4 % (19.7-50.0)
== END ==
LOC: M LAB REF 14:18
PROVIDERS: ATTEND Internal Medicine
DX: D50.9 Iron deficiency anemia, unspecified (principal)

== ENCOUNTER → 2025-08-01 | Outpatient (REF) | payer OTHER, BC | LOC: M SFHCDERM 14:11 | PROVIDERS: ATTEND Physician Assistant | DX: B35.3 Tinea pedis (principal) ==

== ENCOUNTER → 2025-08-12 | Outpatient (REF) | payer OTHER, BC ==
[2025-08-12 15:03] LABS: Trichomonas vaginalis (AMP) NOT DETECTED (NEGATIVE)
[2025-08-12 15:27] LABS: GC DNA AMPLIFICATION NEGATIVE (NEGATIVE)
== END ==
LOC: M LAB REF 11:42
DX: Z72.51 High risk heterosexual behavior (principal)

== ENCOUNTER → 2025-08-15 | Outpatient (REF) | payer BC | LOC: M LAB REF 14:26 | DX: R19.7 Diarrhea, unspecified (principal) ==

== ENCOUNTER → 2025-09-16 | Outpatient (CLI) | payer BC | LOC: M RAD 15:34 | PROVIDERS: ATTEND Internal Medicine | DX: Z12.2 Encounter for screening for malignant neoplasm of respiratory organs (principal); F17.211 Nicotine dependence, cigarettes, in remission; R91.8 Other nonspecific abnormal finding of lung field; I25.10 Atherosclerotic heart disease of native coronary artery without angina pectoris; I70.0 Atherosclerosis of aorta ==

== ENCOUNTER → 2025-10-04 | Outpatient (REF) | payer BC | LOC: M SFHCDERM 16:51 | PROVIDERS: ATTEND Physician Assistant | DX: B35.3 Tinea pedis (principal) ==